=== PATIENT | male | born 1980 | race Caucasian/White ===

== ENCOUNTER 2021-10-15 22:08 | Emergency (ER) | payer SELFPAY ==
[~2021-10-15] VITALS: Ht 170.2 cm; Wt 80.0 kg
[2021-10-15 22:35] VITALS: BP 178/75
== END 2021-10-15 22:50 | disposition left against medical advice (07) ==
LOC: ER 22:08
DX: F10.229 Alcohol dependence with intoxication, unspecified (principal); Y90.0 Blood alcohol level of less than 20 mg/100 ml
CPT/HCPCS: 99283